=== PATIENT | female | born 1935 | race Caucasian/White ===

== ENCOUNTER → 2020-03-31 09:19 | Outpatient (CLI) | payer MEDICARE, SELFPAY ==
--- NOTE | 2020-03-31 | ASPOS_PTH ---
PATIENT: JEROD TERRAZAS LOC: [facility] U#:[id number] AGE/SX: 89/F ROOM: RE03/31/[address]: Dr. Mina Alexander MD : 1935 BED: DIS: SPEC #: [id number] RECD: 03/31/20 11:41 STATUS: SVETLANA REWisam #: [id number] WILL: 03/31/20 00:[address]: Mina Alexander DEPT: CYTOLOGY RECD BY: Aram Israel ENTERED: 03/31/20 11:42 SP TYPE: ASP HERE OTHR DR: Dr. Marya Downey MD Tissues: Parotid gland, NOS Procedures: Surgery Specimen Level IV Cytology Other Fine Needle Asp on Site HEADER OPERATION: Right neck mass fine needle aspiration PRE-OP DIAGNOSIS: Right parotid mass TISSUE SUBMITTED: FNA right parotid DIAGNOSIS CYTOLOGY Fine needle aspiration, right parotid mass (smears and cell block): Abundant crystalloid material with associated acute and chronic inflammation. No evidence of malignancy. AM:robb 04/03/20 COMMENT The specimen is evaluated at the time of FNA by Dr. East. Immediate Evaluation = Abundant amylase-like crystals with associated acute and chronic inflammatory cells consistent with sialadenitis. Case has been reviewed in consultation with Dr. Macdonald who concurs with the above diagnosis. IDC:[facility] CYTOLOGY STUDY Slides are reviewed. CYTOLOGY GROSS Received is 0.2 ml of cloudy yellow material labeled with the patient's name, and designated right parotid mass. Ten imprints and three paps are made from the submitted fluid and the rest is added to CytoLyt for cell block preparation. Submitted for cytology study. / AM:robb 03/31/20 TC:2 CPT: 53836, 51789, 88033, 52545
== END ==
PROVIDERS: PCP Internal Medicine Infectious Disease; Referring Provider Otolaryngology Otolaryngology/Facial Plastic Surgery; Visit Provider Otolaryngology Otolaryngology/Facial Plastic Surgery
DX: R22.1 Localized swelling, mass and lump, neck (principal)
CPT/HCPCS: 10021; 88161; 88305